=== PATIENT | female | born 1980 | race Hispanic/Latino ===

== ENCOUNTER 2017-08-26 02:11 | Emergency (ER) | payer MEDICAID ==
[2017-08-26 02:28] VITALS: RESP 18; TEMP 99.6; BMI 27.7
[2017-08-26] MEDS ORDERED: Sodium Chloride 0.9% 1,000 ML IV STA (02:40)
--- NOTE | 2017-08-26 02:40 | ED PDOC ---
Arrival/HPI - General Chief Complaint: Abdominal Pain Time Seen by Provider: 08/26/17 02:35 Historian: Patient - History of Present Illness Narrative History of Present Illness (Text): 08/26/17 02:39 Nalini Peace is a 37 year old female, whose past medical history includes left ovarian cyst and 2 C-sections, who presents to the Emergency department complaining of intermittent lower abdominal cramping. Patient states symptoms began yesterday but worsened tonight. 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 Patient states she had unprotected sexual intercourse 2 weeks ago. Patient denies any urinary symptoms, vaginal bleeding, fever, chills, nausea, vomiting, diarrhea, back pain, headache, dizziness, or any other complaints. Time/Duration: 24 hours Symptom Onset: Gradual Symptom Course: Intermittent Quality: Cramping Activities at Onset: Light Context: Home Past Medical History - Provider Review Nursing Documentation Reviewed: Yes - Infectious Disease Hx of Infectious Diseases: None - Tetanus Immunization Tetanus Immunization: Unknown - Cardiac Hx Cardiac Disorders: No - Pulmonary Hx Respiratory Disorders: No - Neurological Hx Neurological Disorder: Yes Hx Migraine: Yes - HEENT Hx HEENT Disorder: No - Renal Hx Renal Disorder: No - Endocrine/Metabolic Hx Endocrine Disorders: No - Hematological/Oncological Hx Blood Disorders: No - Integumentary Hx Dermatological Disorder: No - Musculoskeletal/Rheumatological Hx Musculoskeletal Disorders: No - Gastrointestinal Hx Gastrointestinal Disorders: No - Genitourinary/Gynecological Hx Genitourinary Disorders: No - Psychiatric Hx Psychophysiologic Disorder: No Hx Substance Use: No - Surgical History Hx Section: Yes (x2) - Anesthesia Hx Anesthesia: No - Suicidal Assessment Feels Threatened In Home Enviroment: No Family/Social History - Physician Review Nursing Documentation Reviewed: Yes Family/Social History: Unknown Family HX Smoking Status: Never Smoked Hx Alcohol Use: Yes Frequency of alcohol use: Socially Hx Substance Use: No Hx Substance Use Treatment: No Allergies/Home Meds Allergies/Adverse Reactions: Allergies No Known Allergies Allergy (Verified 01/29/15 20:13) Review of Systems - Physician Review All systems were reviewed & negative as marked: Yes - Review of Systems Constitutional: Normal. absent: Fevers Eyes: Normal ENT: Normal Respiratory: Normal. absent: SOB, Cough Cardiovascular: Normal. absent: Chest Pain Gastrointestinal: Abdominal Pain. absent: Diarrhea, Nausea, Vomiting Genitourinary Female: Normal. absent: Dysuria, Frequency, Hematuria, Urine Output Changes Musculoskeletal: Normal. absent: Back Pain, Neck Pain Skin: Normal. absent: Rash Neurological: absent: Dizziness Endocrine: Normal Hemo/Lymphatic: Normal Psychiatric: Normal Physical Exam Vital Signs Reviewed: Yes Vital Signs Temp Pulse Resp BP Pulse Ox 08/26/17 02:27 99.6 F 88 18 102/64 100 Temperature: Afebrile Blood Pressure: Normal Pulse: Regular Respiratory Rate: Normal Appearance: Positive for: Well-Appearing, Non-Toxic, Comfortable Pain Distress: None Mental Status: Positive for: Alert and Oriented X 3 - Systems Exam Head: Present: Atraumatic, Normocephalic Pupils: Present: PERRL Extroacular Muscles: Present: EOMI Conjunctiva: Present: Normal Mouth: Present: Moist Mucous Membranes Neck: Present: Normal Range of Motion Respiratory/Chest: Present: Clear to Auscultation, Good Air Exchange. No: Respiratory Distress, Accessory Muscle Use Cardiovascular: Present: Regular Rate and Rhythm, Normal S1, S2. No: Murmurs Abdomen: No: Tenderness, Distention, Peritoneal Signs Genitourinary/Pelvic Exam: Present: Vaginal Discharge (White-yellowish vaginal discharge), Cervical Motion Tendernes Back: Present: Normal Inspection Upper Extremity: Present: Normal Inspection. No: Cyanosis, Edema Lower Extremity: Present: Normal Inspection. No: Edema Neurological: Present: GCS=15, CN II-XII Intact, Speech Normal Skin: Present: Warm, Dry, Normal Color. No: Rashes Psychiatric: Present: Alert, Oriented x 3, Normal Insight, Normal Concentration Medical Decision Making ED Course and Treatment: 08/26/17 02:40 Impression: 37 year old female complaining of lower abdominal cramping. Plan: -- Labs, lipase -- Urinalysis -- IV fluids -- Toradol -- Reassess and disposition Progress Notes: 08/26/17 05:30 On re-evaluation, patient feels better and is in no acute distress. I have discussed the results and plan with the patient, who expresses understanding. Patient in agreement with plan to be discharged home. Patient is stable for discharge. Patient was instructed to follow up with physician or return if symptoms worsen or new concerning symptoms arise. - Lab Interpretations Lab Results: 08/26/17 02:55 08/26/17 02:55 Lab Results 08/26/17 04:55: Urine Color Yellow, Urine Appearance Clear, Urine pH 7.5, Ur Specific [place] 1.010, Urine Protein Negative, Urine Glucose (UA) Negative, Urine Ketones Negative, Urine Blood Negative, Urine Nitrate Negative, Urine Bilirubin Negative, Urine Urobilinogen 0.2, Ur Leukocyte Esterase Negative, Urine HCG, Qual Negative 08/26/17 02:55: WBC 11.4 H, RBC 3.78, Hgb 9.8 L, Hct 30.4 L, MCV 80.4, MCH 25.9 , MCHC 32.2, RDW 14.4, Plt Count 279, MPV 9.4 08/26/17 02:55: Sodium 139, Potassium 4.0, Chloride 103, Carbon Dioxide 26, Anion Gap 14, BUN 9, Creatinine 0.7, Est GFR ( Amer) > 60, Est GFR (Non- Af Amer) > 60, Random Glucose 95, Calcium 8.6, Total Bilirubin 0.3, AST 22, ALT 21, Alkaline Phosphatase 61, Total Protein 7.0, Albumin 3.9, Globulin 3.1, Albumin/Globulin Ratio 1.2, Lipase 25 I have reviewed the lab results: Yes - Medication Orders Current Medication Orders: Discontinued Medications Azithromycin (Zithromax) 1,000 mg PO ONCE STA PRN Reason: Protocol Stop: 08/26/17 05:29 Ceftriaxone Sodium (Rocephin) 250 mg IM STAT STA PRN Reason: Protocol Stop: 08/26/17 05:28 Sodium Chloride (Sodium Chloride 0.9%) 1,000 mls @ 999 mls/hr IV .Q1H1M STA Stop: 08/26/17 03:40 Last Admin: 08/26/17 03:14 Dose: 999 mls/hr eMAR Start Stop Document 08/26/17 03:14 RD (Rec: 08/26/17 03:15 [place] [facility] [id number] Intravenous Solution Start Date 08/26/17 Start Time 02:55 End Date 08/26/17 End time 03:55 Total Infusion Time 60 Ketorolac Tromethamine (Toradol) 30 mg IVP ONCE ONE Stop: 08/26/17 02:43 Last Admin: 08/26/17 03:15 Dose: 30 mg MAR Pain Assessment Document 08/26/17 03:15 RD (Rec: 08/26/17 03:15 [place] [facility] [id number] Pain Reassessment Is this a pain reassessment? No Sleep Is patient sleeping during reassessment? No Presence of Pain Presence of Pain Yes IVP Administration Document 08/26/17 03:15 RD (Rec: 08/26/17 03:15 [place] [facility] [id number] Charges for Administration # of IVP Administrations 1 Disposition/Present on Arrival - Present on Arrival Any Indicators Present on Arrival: No History of DVT/PE: No History of Uncontrolled Diabetes: No Urinary Catheter: No History of Decub. Ulcer: No History Surgical Site Infection Following: None - Disposition Have Diagnosis and Disposition been Completed?: Yes Diagnosis: PID (pelvic inflammatory disease) Disposition: HOME/ ROUTINE Disposition Time: 05:34 Patient Plan: Discharge Patient Problems: Current Active Problems Problem Status Onset PID (pelvic inflammatory disease) Acute Condition: GOOD Discharge Instructions (ExitCare): Pelvic Inflammatory Disease (DC) Additional Instructions: Follow up with your supervisor alteration workroom this week/advil as directed/no sexual intercourse until seen by your supervisor alteration workroom Forms: [employer] (Finnish)
[2017-08-26 03:14] LABS: HEMOGLOBIN 9.8 g/dL (12.0-16.0); MEAN CELL VOLUME 80.4 fl (80.0-105.0); MEAN CORPUSCULAR HEMOGLOBIN 25.9 pg (25.0-35.0); MEAN CORPUSCULAR HGB CONC 32.2 g/dl (31.0-37.0); MEAN PLATELET VOLUME 9.4 fl (7.0-11.0); RBC 3.78 10^6/uL (3.5-6.1); RED CELL DISTRIBUTION WIDTH 14.4 % (11.5-14.5); WHITE BLOOD COUNT 11.4 10^3/ul (4.5-11.0)
[2017-08-26 03:15] LABS: ALB/GLOB RATIO 1.2 (1.1-1.8); ALBUMIN 3.9 g/dL (3.0-4.8); ALT/SGPT 21 U/L (7-56); AST/SGOT 22 U/L (14-36); BLOOD UREA NITROGEN 9 mg/dL (7-21); CALCIUM 8.6 mg/dL (8.4-10.5); GFR AFRICAN-AMERICAN > 60; GFR NON-AFRICAN AMERICAN > 60; LIPASE 25 U/L (23-300)
[2017-08-26 05:22] LABS: PH,URINE 7.5 (4.7-8.0); URINE BILIRUBIN NEGATIVE (NEGATIVE); URINE BLOOD NEGATIVE (NEGATIVE); URINE GLUCOSE (UA) NEGATIVE (NEGATIVE); URINE LEUKOCYTE ESTERASE NEGATIVE Leu/uL (NEGATIVE); URINE PROTEIN NEGATIVE mg/dL (<30 mg/dL); URINE UROBILINOGEN 0.2 E.U./dL (<1 E.U./dL)
[2017-08-26 05:26] LABS: HCG,QUALITATIVE URINE NEGATIVE (NEGATIVE); URINE APPEARANCE CLEAR (CLEAR); URINE COLOR YELLOW (YELLOW)
[2017-08-26] MEDS ORDERED: cefTRIAXone (Rocephin) 250 mg Inj IM STA (05:27)
[2017-08-26] MEDS ORDERED: Lidocaine 1% Inj (20ml) ONE (05:49)
[2017-08-26 06:24] VITALS: BP 116/70; PULSE 62; O2SAT 99
== END 2017-08-26 06:24 | disposition home or self-care (01) ==
LOC: ED 02:11
DX: N73.9 Female pelvic inflammatory disease, unspecified (principal)
CPT/HCPCS: 80053; 81003; 83690; 84703; 85027; 96361; 96372; 96374; 99282; J0696; J1885; J7030